=== PATIENT | male | born 1985 | race Caucasian/White ===

== ENCOUNTER 2017-02-26 14:28 | Emergency (ER) | payer MEDICAID, OTHER ==
[~2017-02-26] VITALS: Ht 165.1 cm; Wt 66.5 kg
[2017-02-26 14:31] VITALS: Ht 165.1 cm; Wt 66.5 kg
[2017-02-26] MEDS ORDERED: SOD CHLORIDE 0.9% 1,000 ML IV STA (15:26)
[2017-02-26] MEDS ORDERED: ONDANSETRON 4 MG INJ IV STA (15:26)
[2017-02-26] MEDS ORDERED: morphine 4 MG/ML VIAL IV STA ×2 (15:26→16:23)
[2017-02-26 15:54] LABS: BASOPHIL # 0.1 10^3/ul (0.0-0.1); BASOPHILS % 0.4 % (0.0-2.0); EOSINOPHILS # 0.1 10^3/ul (0.0-0.5); EOSINOPHILS % 0.6 % (0.0-7.0); HEMATOCRIT 45.9 % (42.0-52.0); HEMOGLOBIN 16.6 g/dl (14.0-18.0); LYMPHOCYTES # 1.8 10^3/ul (0.8-2.9); LYMPHOCYTES % 13.4 % (15.0-51.0); MEAN CORPUSCULAR HGB CONC 36.2 g/dl (32.0-37.0); MEAN CORPUSCULAR VOLUME 88.4 fl (82.0-101.0); MEAN PLATELET VOLUME 10.4 fl (7.4-10.4); MONOCYTE # 1.2 10^3/ul (0.3-0.9); MONOCYTES % 8.6 % (0.0-11.0); NEUTROPHILS % 76.8 % (39.0-77.0); PLATELET COUNT 219 10^3/UL (140-415); RED BLOOD COUNT 5.19 10^6/ul (4.70-6.10); RED CELL DISTRIBUTION WIDTH 12.1 % (11.5-14.5); WHITE BLOOD COUNT 13.6 10^3/ul (4.8-10.8)
[2017-02-26 16:09] LABS: ADD UMIC YES; UR ASCORBIC ACID NEGATIVE (NEGATIVE); UR BILIRUBIN (Dip) NEGATIVE (NEGATIVE); UR BLOOD (Dip) 3+ mg/dL (NEGATIVE); UR CLARITY SLIGHTLY CLOUDY (CLEAR); UR COLOR YELLOW (YELLOW); UR GLUCOSE (Dip) NEGATIVE (NEGATIVE); UR KETONES (Dip) NEGATIVE (NEGATIVE); UR LEUKOCYTE ESTERASE (Dip) NEGATIVE Leu/ul (NEGATIVE); UR NITRITE (Dip) NEGATIVE (NEGATIVE); UR RBC 172 /HPF (0-5); UR SPECIFIC GRAVITY (Dip) 1.019 (1.003-1.030); UR TOTAL PROTEIN (Dip) NEGATIVE (NEGATIVE); UR UROBILINOGEN (Dip) 1+ mg/dL (NEGATIVE)
[2017-02-26 16:13] LABS: ALBUMIN 4.9 g/dl (3.3-4.9); ALBUMIN/GLOBULIN RATIO 1.25; BILIRUBIN,INDIRECT 0.5 mg/dl (0-1.1); BILIRUBIN,TOTAL 0.5 mg/dl (0.2-1.3); CALCIUM 9.8 mg/dl (8.4-10.2); CREATININE 1.33 mg/dl (0.61-1.24); POTASSIUM 3.6 mmol/L (3.5-5.1); TOTAL PROTEIN 8.8 g/dl (6.1-8.1)
[2017-02-26] MEDS ORDERED: KETOROLAC 30 MG INJ IV STA (16:23)
--- NOTE | 2017-02-26 16:30 | ERD ---
ER Documentation Chief Complaint Date/Time DATE: 02/26/17 TIME: 16:25 Chief Complaint LT FLANK PAIN X 6 HOURS. DENIES DYSURIA HPI This is a 31-year-old male, with no past medical history, presenting to emergency department with sudden onset left flank pain 6 hours. Patient states he has sharp, squeezing type pain to left flank that radiates to left upper and lower abdomen. Patient rating pain with no aggravating or alleviating factors. 10/10 nausea or vomiting. No diarrhea or constipation. No dysuria, hematuria, urinary frequency or urgency. No pelvic pain. No fevers or chills. ROS All systems reviewed and are negative except as per history of present illness. Medications Home Meds Active Scripts Docusate Sodium* (Colace*) 100 Mg Capsule, 100 MG PO BID, #20 CAP Prov:MAR CASSIDY NP 02/26/17 Ibuprofen* (Motrin*) 600 Mg Tab, 600 MG PO Q6, #15 TAB Prov:MAR CASSIDY NP 02/26/17 Tamsulosin Hcl* (Flomax*) 0.4 Mg Cap.er.24h, 0.4 MG PO DAILY, #10 CAP Prov:MAR CASSIDY NP 02/26/17 Hydrocodone/Acetaminophen (Criders 5-325 Tablet) 1 Each Tablet, 1 TAB PO Q6H Y for PAIN, #15 TAB Prov:MAR CASSIDY NP 02/26/17 PMhx/Soc Medical and Surgical Hx: pt denies Medical Hx, pt denies Surgical Hx Hx Alcohol Use: No Hx Substance Use: No Hx Tobacco Use: No Smoking Status: Never smoker Physical Exam Vitals Vital Signs Date Time Temp Pulse Resp B/P Pulse Ox O2 Delivery O2 Flow Rate FiO2 02/26/17 18:39 98.7 82 18 128/79 100 Room Air 02/26/17 14:31 99.4 84 22 138/83 99 Physical Exam Const: Alert, writhing in pain Head: Atraumatic Eyes: Normal Conjunctiva ENT: Normal External Ears, Nose and Mouth. Neck: Full range of motion..~ No meningismus. Resp: Clear to auscultation bilaterally. No wheezing, rhonchi or crackles. No stridor or labored breathing. Cardio: Regular rate and rhythm, no murmurs Abd: Soft, non distended. Normal bowel sounds, Generalized tenderness to abdomen. Skin: No petechiae or rashes Back: No midline or flank tenderness. CVA tenderness to left flank. Ext: No cyanosis, or edema Neur: Awake and alert Psych: Normal Mood and Affect Result Diagram: 02/26/17 1540 02/26/17 1540 Results 24 hrs Laboratory Tests Test 02/26/17 15:32 02/26/17 15:40 Urine Color YELLOW Urine Clarity SLIGHTLY CLOUDY Urine pH 7.0 Urine Specific [place]me 1.019 Urine Ketones NEGATIVEmg/dL Urine Nitrite NEGATIVEmg/dL Urine Bilirubin NEGATIVEmg/dL Urine Urobilinogen 1+mg/dL Urine Leukocyte Esterase NEGATIVELeu/ul Urine Microscopic RBC 172/HPF Urine Microscopic WBC 1/HPF Urine Hemoglobin 3+mg/dL Urine Glucose NEGATIVEmg/dL Urine Total Protein NEGATIVEmg/dl White Blood Count 13.610^3/ul Red Blood Count 5.1910^6/ul Hemoglobin 16.6g/dl Hematocrit 45.9% Mean Corpuscular Volume 88.4fl Mean Corpuscular Hemoglobin 32.0pg Mean Corpuscular Hemoglobin Concent 36.2g/dl Red Cell Distribution Width 12.1% Platelet Count 20125^3/UL Mean Platelet Volume 10.4fl Neutrophils % 76.8% Lymphocytes % 13.4% Monocytes % 8.6% Eosinophils % 0.6% Basophils % 0.4% Nucleated Red Blood Cells % 0.0/100WBC Neutrophils # (Manual) 10.510^3/ul Lymphocytes # 1.810^3/ul Monocytes # 1.210^3/ul Eosinophils # 0.110^3/ul Basophils # 0.110^3/ul Nucleated Red Blood Cells # 0.010^3/ul Sodium Level 144mmol/L Potassium Level 3.6mmol/L Chloride Level 106mmol/L Carbon Dioxide Level 24mmol/L Anion Gap 18 Blood Urea Nitrogen 15mg/dl Creatinine 1.33mg/dl Glucose Level 98mg/dl Calcium Level 9.8mg/dl Total Bilirubin 0.5mg/dl Direct Bilirubin 0.00mg/dl Indirect Bilirubin 0.5mg/dl Aspartate Amino Transf (AST/SGOT) 21IU/L Alanine Aminotransferase (ALT/SGPT) 35IU/L Alkaline Phosphatase 112IU/L Total Protein 8.8g/dl Albumin 4.9g/dl Globulin 3.90g/dl Albumin/Globulin Ratio 1.25 Lipase 222U/L Current Medications Medications (Trade) Dose Ordered Sig/Patrick Route PRN Reason Start Time Stop Time Status Last Admin Dose Admin Sodium Chloride (NS) 1,000 ml @ 1,000 mls/hr Q1H STAT IV 02/26/17 15:26 02/26/17 16:25 DC 02/26/17 15:47 Morphine Sulfate (morphine) 4 mg ONCE STAT IV 02/26/17 15:26 02/26/17 15:29 DC 02/26/17 15:45 Ondansetron HCl (Zofran Inj) 4 mg ONCE STAT IV 02/26/17 15:26 02/26/17 15:29 DC 02/26/17 15:46 Ketorolac Tromethamine (Toradol) 30 mg ONCE STAT IV 02/26/17 16:23 02/26/17 16:24 DC 02/26/17 16:27 Morphine Sulfate (morphine) 4 mg ONCE STAT IV 02/26/17 16:23 02/26/17 16:24 DC 02/26/17 16:27 Procedures/[place] [id number] Radiology Main Line: [phone] DIAGNOSTIC IMAGING REPORT Patient: CLAYTON NEWTON : 1985 Age: 31 Sex: M MR #: [id number] DOS: 02/26/17 1526 Ordering MD: MAR CASSIDY NP Location: [facility] Room/Bed: PROCEDURE: CT ABDOMEN AND PELVIS WITHOUT CONTRAST: CLINICAL INDICATION: 31 years of age, male , left flank pain. COMPARISON: None available. TECHNIQUE: CT of the abdomen and pelvis was performed without intravenous contrast. Oral contrast was not administered prior to the examination. Coronal and sagittal reformatted images were obtained from the axial source images. Images were reviewed on a high-resolution PACS workstation. Dose information: Based on a 32 cm phantom, the estimated radiation dose (CTDI vol mGy) for each series in this exam is 7.6. The estimated cumulative dose ( DLP mGy-cm) is 421. One or more of the following dose reduction techniques were used: - Automated exposure control. - Adjustment of the mA and/or kV according to patient size. - Use of iterative reconstruction technique. FINDINGS: In the absence of intravenous contrast, the study constitutes a limited assessment of the solid organs, bowel and vessels. LUNG BASES: Normal noncontrast appearance. ABDOMEN/PELVIS: Liver: Normal noncontrast appearance. Gallbladder: Normal noncontrast appearance. Bile ducts: No intrahepatic or extrahepatic biliary duct dilatation. Spleen: Normal noncontrast appearance. Pancreas: Normal noncontrast appearance. Adrenal glands: Normal noncontrast appearance. Kidneys and ureters: There is a 0.5 cm obstructing calculus in the mid left ureter with mild left hydronephrosis and perinephric fat stranding. No other urinary calculi are identified. Negative for right hydronephrosis. Aorta and IVC: Normal noncontrast appearance. Lymph nodes: Normal noncontrast appearance. Gastrointestinal tract: Normal noncontrast appearance. Appendix: Normal Bladder: Normal noncontrast appearance. Pelvic Organs: Prostate gland and seminal vesicles are unremarkable. Peritoneal cavity: No free fluid or free intraperitoneal air. Abdominal wall: Normal noncontrast appearance. BONES: Musculoskeletal: Scattered pelvic bone islands. No suspicious bone lesions. IMPRESSION: 0.5 cm obstructing calculus mid left ureter with mild left hydronephrosis. MDM: This is a 31-year-old male presenting to emergency department with sudden onset severe left flank pain that radiates to her abdomen 6 hours. Physical exam reveals severe left flank pain that radiates to left upper and lower abdomen. Patient rating pain 10/10. IV access obtained per chief of staff and labs drawn. Patient given IV fluid bolus of normal saline 1 L. Patient also given morphine 4 mg and Zofran 4 mg IV. Upon reassessment, patient states pain continues to be severe. Patient also given another dose of morphine 4 mg IV and Toradol 30 mg IV. CBC shows white blood cells 13.6 without neutrophilia. CBC shows creatinine 1.33 and BUN 15. Normal liver enzymes. Normal bilirubin. Lipase is 222. UA shows 3+ hemoglobin, 172 RBCs. Negative leukocyte esterase and negative nitrite. CT abdomen and pelvis reviewed by radiologist as 0.5cm obstructing calculus mid left ureter with mild left hydronephrosis. Upon reassessment, patient's pain is now tolerable. Consulted Dr. Barnes regarding this patient and he agrees with my plan of care for outpatient management with pain medication and close follow up. Diagnosis is nephrolithiasis. Low suspicion for septic stone, UTI, pyelonephritis and bowel obstruction. Patient is appropriate for outpatient management and will be given prescription for Criders 5/325mg #15 and ibuprofen 600mg #15, Flomax 0.4mg #10 and Colace 100mg #20. Instructed patient to follow up with PCP in the next 2-3 days for reassessment. Return to ED for any new or worsening symptoms. Patient verbalizes understanding. All questions answered at discharge. Departure Diagnosis: Primary Impression: Nephrolithiasis Condition: Stable MAR CASSIDY NP Feb 26, 2017 16:29
--- NOTE | 2017-02-26 17:48 | RADRPT ---
PROCEDURE: CT ABDOMEN AND PELVIS WITHOUT CONTRAST: CLINICAL INDICATION: 31 years of age, male , left flank pain. COMPARISON: None available. TECHNIQUE: CT of the abdomen and pelvis was performed without intravenous contrast. Oral contrast wa s not administered prior to the examination. Coronal and sagittal reformatted images were obtained from the axial source images. Images were revi ewed on a high-resolution PACS workstation. Dose information: Based on a 32 cm phantom, the estimated radiation dose (CTDI vol mGy) for each ser ies in this exam is 7.6. The estimated cumulative dose (DLP mGy-cm) is 421. One or more of the following dose reduction techniques were used: - Automated exposure control. - Adjustment of the mA and/or kV according to patient size. - Use of iterative reconstruction technique. FINDINGS: In the absence of intravenous contrast, the study constitutes a limited assessment of the solid orga ns, bowel and vessels. LUNG BASES: Normal noncontrast appearance. ABDOMEN/PELVIS: Liver: Normal noncontrast appearance. Gallbladder: Normal noncontrast appearance. Bile ducts: No intrahepatic or extrahepatic biliary duct dilatation. Spleen: Normal noncontrast appearance. Pancreas: Normal noncontrast appearance. Adrenal glands: Normal noncontrast appearance. Kidneys and ureters: There is a 0.5 cm obstructing calculus in the mid left ureter with mild left hy dronephrosis and perinephric fat stranding. No other urinary calculi are identified. Negative for right hydronephrosis. Aorta and IVC: Normal noncontrast appearance. Lymph nodes: Normal noncontrast appearance. Gastrointestinal tract: Normal noncontrast appearance. Appendix: Normal Bladder: Normal noncontrast appearance. Pelvic Organs: Prostate gland and seminal vesicles are unremarkable. Peritoneal cavity: No free fluid or free intraperitoneal air. Abdominal wall: Normal noncontrast appearance. BONES: Musculoskeletal: Scattered pelvic bone islands. No suspicious bone lesions. IMPRESSION: 0.5 cm obstructing calculus mid left ureter with mild left hydronephrosis. RPTAT: HCTS Physician Ludivina Date Time Electronically viewed and signed by Physician Ludivina on 02/26/2017 17:48 CS/
[2017-02-26] MEDS ORDERED: DOCU-144 PO (17:58)
[2017-02-26] MEDS ORDERED: IBUP-1542 PO (17:58)
[2017-02-26] MEDS ORDERED: HYDR-906 PO (17:58)
[2017-02-26] MEDS ORDERED: TAMS-14 PO (17:58)
[2017-02-26 18:39] VITALS: BP 128/79; PULSE 82; RESP 18; TEMP 98.7
== END 2017-02-26 18:39 | disposition home or self-care (01) ==
LOC: FTE 14:28
DX: N20.0 Calculus of kidney (principal); R11.2 Nausea with vomiting, unspecified
CPT/HCPCS: 36415; 74176; 80053; 81001; 83690; 85025; 96374; 96375; 96376; J1885; J2270; J2405; J7030; Z7502

== ENCOUNTER 2017-03-01 14:26 | Emergency (ER) | payer MEDICAID ==
[~2017-03-01] VITALS: Ht 165.1 cm; Wt 68.5 kg
[~2017-03-01 14:26] MED LIST: DOCU-144 PO; HYDR-906 PO; IBUP-1542 PO; TAMS-14 PO
[2017-03-01 14:35] VITALS: Ht 165.1 cm; Wt 68.5 kg
[2017-03-01] MEDS ORDERED: ONDANSETRON (ODT) 4 MG TAB ODT STA (15:18)
[2017-03-01] MEDS ORDERED: KETOROLAC 60 MG INJ IM STA (16:08)
[2017-03-01] MEDS ORDERED: ONDA4TAB14 PO (16:14)
--- NOTE | 2017-03-01 16:57 | ERD ---
ER Documentation Chief Complaint Date/Time DATE: 03/01/17 TIME: 16:52 Chief Complaint left flank pain x 3 days HPI 31-year-old male patient with no significant past medical history presents the ED complaining of left flank pain that started 3 days ago. Patient was seen here on February 26, 2017 and was diagnosed with a 5 mm nephrolithiasis of the left kidney. Patient was discharged with [place], Tamsulosin, Ibuprofen, Colace. States that he is here because he feels nauseous but denies any vomiting. Patient was not discharged with any Zofran. Denies any fever, chills, diarrhea , chest pain, wheezing, abdominal pain, diarrhea. ROS All systems reviewed and are negative except as per history of present illness. Medications Home Meds Active Scripts Ondansetron (Ondansetron Odt) 4 Mg Tab.rapdis, 4 MG PO Q6H Y for NAUSEA AND/OR VOMITING, #10 TAB Prov:HERBER ROUSE PA-C 03/01/17 Docusate Sodium* (Colace*) 100 Mg Capsule, 100 MG PO BID, #20 CAP Prov:MAR CASSIDY NP 02/26/17 Ibuprofen* (Motrin*) 600 Mg Tab, 600 MG PO Q6, #15 TAB Prov:MAR CASSIDY NP 02/26/17 Tamsulosin Hcl* (Flomax*) 0.4 Mg Cap.er.24h, 0.4 MG PO DAILY, #10 CAP Prov:MAR CASSIDY NP 02/26/17 Hydrocodone/Acetaminophen ([place] 5-325 Tablet) 1 Each Tablet, 1 TAB PO Q6H Y for PAIN, #15 TAB Prov:MAR CASSIDY NP 02/26/17 PMhx/Soc Medical and Surgical Hx: pt denies Medical Hx, pt denies Surgical Hx History of Surgery: No Anesthesia Reaction: No Hx Neurological Disorder: No Hx Respiratory Disorders: No Hx Cardiac Disorders: No Hx Psychiatric Problems: No Hx Miscellaneous Medical Probl: No Hx Alcohol Use: No Hx Substance Use: No Hx Tobacco Use: No Smoking Status: Never smoker Physical Exam Vitals Vital Signs Date Time Temp Pulse Resp B/P Pulse Ox O2 Delivery O2 Flow Rate FiO2 03/01/17 14:35 98.1 72 18 120/70 99 Physical Exam Const: Iop-vef-ebwcbnhak, well-nourished. In no acute distress. Head: Atraumatic, normocephalic Eyes: Normal Conjunctiva without injection. No purulent discharge. ENT: Normal external ear, nose. Moist oropharynx without tonsillar exudates. Non -erythematous pharynx. Uvula midline. No drooling. No trismus. Neck: No cervical midline tenderness. Full range of motion. No meningismus. No cervical lymphadenopathy. No JVD. Resp: Clear to auscultation bilaterally. No wheezing, rhonchi, rales, or crackles. No accessory muscle use. No retractions. Cardio: Regular rate and rhythm. No murmurs, rubs or gallops. Abd: Soft, tender non distended. Normal bowel sounds. No palpable masses. No rebound tenderness. No guarding. Negative McBurney's point. Negative psoas sign. Negative obturator sign. Skin: No petechiae or rashes Back: No midline tenderness. Left CVA tenderness. Ext: No cyanosis, or edema. Neur: Awake and alert. Normal gait. Normal coordination. Psych: Normal Mood and Affect Results 24 hrs Current Medications Medications (Trade) Dose Ordered Sig/Patrick Route PRN Reason Start Time Stop Time Status Last Admin Dose Admin Ondansetron HCl (Zofran Odt) 4 mg ONCE STAT ODT 03/01/17 15:18 03/01/17 15:19 DC 03/01/17 15:22 Ketorolac Tromethamine (Toradol) 60 mg ONCE STAT IM 03/01/17 16:08 03/01/17 16:09 DC Procedures/MDM 31-year-old male patient with no significant past medical history presents to the ED complaining of persistent nephrolithiasis pain that he was diagnosed with on February 26, 2017. Patient is afebrile and nontoxic-appearing. Patient states that he is here because of nausea. He was given Zofran here in the ED and tolerated oral intake. Toradol improved his pain. There is no further workup indicated. Patient's vital signs are within normal limits. He was strictly instructed to follow-up with a urologist for his nephrolithiasis diagnosed 02/26/17. Patient is ambulating here in the ED without difficulty. Denies saddle anesthesia, numbness or tingling, urine or bowel incontinence, weakness. Low suspicion for cauda equina syndrome, cord compression, aortic aneurysm, aortic dissection, epidural abscess, spinal hematoma, malignancy, pyelonephritis, or other emergent conditions. Discharge medications: Zofran Follow up with primary care physician in 1-2 days for referral to behavioral geneticist. Instructed patient to return to the ED sooner for any worsening symptoms. Patient's questions were answered. Patient understood and agreed with discharge plan. Patient discharged stable. Departure Diagnosis: Primary Impression: Nausea Additional Impression: Flank pain Condition: Stable Patient Instructions: Nausea, Kidney Stone W/ Colic Referrals: [facility] YOU HAVE RECEIVED A MEDICAL SCREENING EXAM AND THE RESULTS INDICATE THAT YOU DO NOT HAVE A CONDITION THAT REQUIRES URGENT TREATMENT IN THE EMERGENCY DEPARTMENT. FURTHER EVALUATION AND TREATMENT OF YOUR CONDITION CAN WAIT UNTIL YOU ARE SEEN IN YOUR DOCTORS OFFICE WITHIN THE NEXT 1-2 DAYS. IT IS YOUR RESPONSIBILITY TO MAKE AN APPOINTMENT FOR FOLOW-UP CARE. IF YOU HAVE A PRIMARY DOCTOR --you should call your primary doctor and schedule an appointment IF YOU DO NOT HAVE A PRIMARY DOCTOR YOU CAN CALL OUR PHYSICIAN REFERRAL HOTLINE AT IF YOU CAN NOT AFFORD TO SEE A PHYSICIAN YOU CAN CHOSE FROM THE FOLLOWING [facility] [address] [facility]. [facility] [address] [facility] [facility] [address] [facility] [facility] [address] [facility] [facility] [address] [facility]. [facility]. [address] [facility]. [facility] YOU HAVE RECEIVED A MEDICAL SCREENING EXAM AND THE RESULTS INDICATE THAT YOU DO NOT HAVE A CONDITION THAT REQUIRES URGENT TREATMENT IN THE EMERGENCY DEPARTMENT. FURTHER EVALUATION AND TREATMENT OF YOUR CONDITION CAN WAIT UNTIL YOU ARE SEEN IN YOUR DOCTORS OFFICE WITHIN THE NEXT 1-2 DAYS. IT IS YOUR RESPONSIBILITY TO MAKE AN APPOINTMENT FOR FOLOW-UP CARE. IF YOU HAVE A PRIMARY DOCTOR --you should call your primary doctor and schedule and appointment IF YOU DO NOT HAVE A PRIMARY DOCTOR YOU CAN CALL OUR PHYSICIAN REFERRAL HOTLINE AT . IF YOU CAN NOT AFFORD TO SEE A PHYSICIAN YOU CAN CHOSE FROM THE FOLLOWING [facility] INSTITUTIONS: [facility] [address] [place] [address] [facility] [address] [place] [address] [facility] [address] [place] [address] [facility] URGENT CARE/SPECIALTIES Additional Instructions: Call your primary care doctor TOMORROW for a referral to a urologist. See the doctor sooner or return here if your condition worsens before your appointment time. HERBER ROUSE PA-C Mar 01, 2017 16:57 HERBER ROUSE PA-C Mar 01, 2017 16:57
== END 2017-03-01 16:45 | disposition home or self-care (01) ==
LOC: FTE 14:26
DX: R11.0 Nausea (principal)
CPT/HCPCS: Z7502; Z7610; 99283